=== PATIENT | male | born 1990 | race Caucasian/White ===

== ENCOUNTER 2019-07-19 08:44 | Emergency (ER) | payer OTHER ==
--- NOTE | 2019-07-19 09:16 | UC ---
Throat Pain/Nasal Alejandro HPI - HPI Summary HPI Summary: 29-year-old male who had cough and cold symptoms for weeks ago which have improved but not totally resolved and he now has maxillary sinus pressure with postnasal drainage. - History of Current Complaint Stated Complaint: SINUSES/ST Time Seen by Provider: 07/19/19 09:09 Hx Obtained From: Patient Onset/Duration: Gradual Onset Severity: Mild Cough: Nonproductive Associated Signs & Symptoms: Positive: Sinus Discomfort, Nasal Discharge - Allergies/Home Medications Allergies/Adverse Reactions: Allergies Allergy/AdvReac Type Severity Reaction Status Date / Time Penicillins Allergy Hives Verified 07/19/19 09:18 Home Medications: Home Medications DOXYcycline CAP(*) [DOXYcycline 100MG CAP(*)] 100 mg PO BID 7 Days #14 cap 07/18 [Rx] PMH/Surg Hx/FS Hx/Imm Hx Previously Healthy: Yes - Family History Known Family History: Positive: Unknown - Social History Occupation: Employed Full-time Review of Systems All Other Systems Reviewed And Are Negative: Yes ENT: Positive: Sore Throat - Sore throat is mostly due to postnasal drainage., Nasal Discharge, Sinus Congestion Respiratory: Positive: Cough - Nonproductive cough. Is Patient Immunocompromised?: No Physical Exam Triage Information Reviewed: Yes Appearance: Well-Appearing, No Pain Distress, Well-Nourished Vital Signs Reviewed: Yes Eyes: Positive: Conjunctiva Clear ENT: Positive: Pharynx normal - Thick yellow postnasal drainage., Nasal congestion, Nasal drainage - Yellow nasal coryza mostly on the right side., TMs normal, Sinus tenderness - Tender over the maxillary sinuses bilaterally., Uvula midline Neck: Positive: Supple, Nontender, No Lymphadenopathy Respiratory: Positive: Lungs clear, Normal breath sounds, No respiratory distress, No accessory muscle use Cardiovascular: Positive: RRR, No Murmur, Pulses Normal, Brisk Capillary Refill Musculoskeletal Exam: Normal Neurological Exam: Normal Psychological Exam: Normal Skin Exam: Normal Throat Pain/Nasal Course/Dx - Course Course Of Treatment: Patient is comfortable here and in no distress. - Differential Dx/Diagnosis Provider Diagnosis: Sinusitis Discharge ED - Sign-Out/Discharge Documenting (check all that apply): Patient Departure All imaging exams completed and their final reports reviewed: No Studies - Discharge Plan Condition: Good Disposition: HOME Prescriptions: DOXYcycline CAP(*) [DOXYcycline 100MG CAP(*)] 100 mg PO BID 7 Days #14 cap Patient Education Materials: Sinusitis (ED) Referrals: No Primary Care Phys,NOPCP [Primary Care Provider] - [facility] [Outside] Additional Instructions: No dairy products, antacids or multivitamins or multivitamins supplements 2 hours before you take the doxycycline and 2 hours after you take it however take it with food. Follow-up with your primary care provider or [facility] if no improvement in 5-7 days. - Billing Disposition and Condition Condition: GOOD Disposition: Home
[2019-07-19 09:20] VITALS: BP 148/78
== END 2019-07-19 09:33 | disposition home or self-care (01) ==
LOC: UCCORT 08:44
DX: J32.9 Chronic sinusitis, unspecified (principal); R05 Cough; Z88.0 Allergy status to penicillin
CPT/HCPCS: 99202; G0463